=== PATIENT | male | born 1955 | race Caucasian/White ===

== ENCOUNTER 2022-12-24 02:59 | Inpatient (IN) | payer BC, OTHER ==
[~2022-12-24] VITALS: Ht 170.2 cm; Wt 97.5 kg
[2022-12-24 03:01] VITALS: BP_SYST 130
[2022-12-24] MEDS ORDERED: iohexoL 350 mgI/mL, 100 ML INFUS..BTL IV ONE (03:13)
[2022-12-24] MEDS ORDERED: TENECTEPLASE 50 MG VIAL IV ONE (03:15)
[2022-12-24 03:23] LABS: BASOPHILS # (AUTO) 0.1 K/uL (0.0-0.2); EOSINOPHILS % (AUTO) 0.2 % (0.0-4.0); HEMATOCRIT 36.1 % (36-54); LYMPHOCYTES # (AUTO) 1.6 K/uL (1.0-5.5); LYMPHOCYTES % (AUTO) 14.8 % (20.5-51.5); MEAN CORPUSCULAR HEMOGLOBIN 34 pg (27-31); MEAN CORPUSCULAR HGB CONC 36 % (32-36); MEAN CORPUSCULAR VOLUME 95 fL (79.0-98.0); MONOCYTES # (AUTO) 0.5 K/uL (0.0-1.0); MONOCYTES % (AUTO) 5.1 % (1.7-9.3); NEUTROPHILS # (AUTO) 8.4 K/uL (1.8-7.7); NEUTROPHILS % (AUTO) 78.9 % (40.0-70.0); PLATELET COUNT (AUTO) 231 K/uL (130-430); RED CELL DISTRIBUTION WIDTH 12.5 % (9.0-15.0); WHITE BLOOD COUNT (AUTO) 10.7 K/uL (4.8-10.8)
[2022-12-24 03:33] LABS: ANION GAP 10 (5-15); CALCIUM 9.1 mg/dL (8.4-11.0); CHLORIDE 102 mmol/L (98-107); CREATININE 1.14 mg/dL (0.55-1.30); GLUCOSE 207 mg/dL (70-99); UREA NITROGEN, BLOOD 19 mg/dL (8-21)
[2022-12-24 03:38] LABS: GFR AFRICAN AMERICAN 83 mL/min (>90)
[2022-12-24 03:39] LABS: ALANINE AMINOTRANSFERASE 26 U/L (12-78); ALBUMIN 3.5 g/dL (3.4-4.8); ASPARTATE AMINOTRANSFERASE 12 U/L (10-37); TOTAL BILIRUBIN 0.4 mg/dL (0.0-1.0)
[2022-12-24] MEDS ORDERED: ASPIRIN 325 MG TABLET PO ONE (04:00)
[2022-12-24] MEDS: ATORVASTATIN 20 MG TABLET PO ONE ×2 (04:11→04:14)
[2022-12-24] MEDS ORDERED: ATORVASTATIN 20 MG TABLET ONE (04:12)
[2022-12-24] MEDS ORDERED: INSULIN REGULAR, HUMAN 100 UNITS/ML, 3 ML VIAL (humuLIN R) SUBCUT PRN (04:30)
[2022-12-24 06:38] LABS: BILIRUBIN,URINE NEGATIVE (NEGATIVE); BLOOD, URINE NEGATIVE (NEGATIVE); CLARITY/URINE CLEAR (CLEAR); COLOR,URINE YELLOW (YELLOW); GLUCOSE,URINE NEGATIVE (NEGATIVE); KETONES,URINE NEGATIVE (NEGATIVE); LEUKOCYTE ESTERASE ,URINE NEGATIVE (NEGATIVE); NITRITE, URINE NEGATIVE (NEGATIVE); PH,URINE 6.5 (5.0-8.0); PROTEIN URINE NEGATIVE (NEGATIVE); UROBILINOGEN,URINE 0.2 (0.2-1.0)
[2022-12-24] MEDS ORDERED: METF-379 PO (07:19)
[2022-12-24] MEDS: metFORMIN HCL 500 MG TABLET PO SCH (09:00)
[2022-12-24 09:49] VITALS: BP_SYST 175
[2022-12-24] MEDS ORDERED: HYDROcodone/ACETAMIN 5-325 MG TAB (NORCO/ VICODIN) PO PRN (10:00)
[2022-12-24] MEDS ORDERED: NALOXONE HCL 0.4 MG/ML AMP (NARCAN) IVP PRN ×2 (10:00)
[2022-12-24] MEDS ORDERED: HYDROcodone/ACETAMIN 10-325 MG TAB PO PRN (10:00)
[2022-12-24] MEDS ORDERED: ONDANSETRON HCL 4 MG/2 ML VIAL IVP PRN (10:00)
[2022-12-24] MEDS ORDERED: ACETAMINOPHEN 325 MG TABLET PO PRN (10:00)
[2022-12-24] MEDS ORDERED: LORazepam 2 MG/ML VIAL IVP PRN (10:00)
[2022-12-24] MEDS ORDERED: cloNIDine HCL 0.2 MG TABLET PO PRN (10:15)
[2022-12-24] MEDS ORDERED: HYDROCHLOROTHIAZIDE 25 MG TABLET (HCTZ) PO ONE (11:00)
[2022-12-24 12:55] VITALS: BP_SYST 152
[2022-12-24] MEDS ORDERED: NORMAL SALINE 5 ML DISP.SYRIN IVF SCH (14:00)
[2022-12-24] MEDS: NORMAL SALINE 5 ML DISP.SYRIN IVF SCH ×2 (14:11→23:17)
[2022-12-24] MEDS ORDERED: FAMOTIDINE 20 MG TABLET PO ONE (14:30)
[2022-12-24 15:35] VITALS: BP_SYST 143
[2022-12-24 16:00] VITALS: BP_SYST 143
[2022-12-24 20:00] VITALS: BP_SYST 137
[2022-12-24] MEDS: LISINOPRIL 10 MG TABLET (PRINIVIL) PO SCH (21:25)
[2022-12-24] MEDS: FAMOTIDINE 20 MG TABLET PO SCH (21:25)
[2022-12-25 00:40] VITALS: BP_SYST 130
[2022-12-25] MEDS: NORMAL SALINE 5 ML DISP.SYRIN IVF SCH ×3 (06:18→22:12)
[2022-12-25 06:26] LABS: BASOPHILS % (AUTO) 0.5 % (0.0-2.0); EOSINOPHILS % (AUTO) 0.4 % (0.0-4.0); HEMATOCRIT 38.3 % (36-54); HEMOGLOBIN 13.5 g/dL (14.0-18.0); LYMPHOCYTES # (AUTO) 1.7 K/uL (1.0-5.5); LYMPHOCYTES % (AUTO) 16.8 % (20.5-51.5); MEAN CORPUSCULAR HEMOGLOBIN 34 pg (27-31); MEAN CORPUSCULAR HGB CONC 35 % (32-36); MEAN CORPUSCULAR VOLUME 98 fL (79.0-98.0); MONOCYTES # (AUTO) 0.6 K/uL (0.0-1.0); MONOCYTES % (AUTO) 5.8 % (1.7-9.3); NEUTROPHILS # (AUTO) 7.5 K/uL (1.8-7.7); NEUTROPHILS % (AUTO) 76.5 % (40.0-70.0); PLATELET COUNT (AUTO) 247 K/uL (130-430); RED BLOOD CELL COUNT(AUTO) 3.92 MIL/uL (4.2-6.2); RED CELL DISTRIBUTION WIDTH 12.3 % (9.0-15.0); WHITE BLOOD COUNT (AUTO) 9.8 K/uL (4.8-10.8)
[2022-12-25 07:00] LABS: CALCIUM 9.5 mg/dL (8.4-11.0); CREATININE 0.96 mg/dL (0.55-1.30); PHOSPHORUS 4.2 mg/dL (2.7-4.5)
[2022-12-25 07:32] VITALS: BP_SYST 148
[2022-12-25 08:00] VITALS: BP_SYST 148
[2022-12-25] MEDS: metFORMIN HCL 500 MG TABLET PO SCH (08:10)
[2022-12-25] MEDS: FAMOTIDINE 20 MG TABLET PO SCH ×2 (08:12→22:10)
[2022-12-25] MEDS: ATORVASTATIN 20 MG TABLET PO SCH (08:12)
[2022-12-25] MEDS: ASPIRIN 81 MG TAB.CHEW PO SCH (08:12)
[2022-12-25 11:30] VITALS: BP_SYST 134
[2022-12-25 15:29] VITALS: BP_SYST 146
[2022-12-25 20:30] VITALS: BP_SYST 139
[2022-12-25] MEDS: LISINOPRIL 10 MG TABLET (PRINIVIL) PO SCH (22:11)
[2022-12-26 00:12] VITALS: BP_SYST 136
[2022-12-26 06:20] LABS: BASOPHILS # (AUTO) 0.1 K/uL (0.0-0.2); BASOPHILS % (AUTO) 0.8 % (0.0-2.0); EOSINOPHILS % (AUTO) 0.4 % (0.0-4.0); HEMATOCRIT 38.7 % (36-54); HEMOGLOBIN 13.9 g/dL (14.0-18.0); LYMPHOCYTES # (AUTO) 1.7 K/uL (1.0-5.5); LYMPHOCYTES % (AUTO) 19.5 % (20.5-51.5); MEAN CORPUSCULAR HEMOGLOBIN 34 pg (27-31); MEAN CORPUSCULAR HGB CONC 36 % (32-36); MEAN CORPUSCULAR VOLUME 96 fL (79.0-98.0); MONOCYTES # (AUTO) 0.6 K/uL (0.0-1.0); MONOCYTES % (AUTO) 7.4 % (1.7-9.3); NEUTROPHILS # (AUTO) 6.3 K/uL (1.8-7.7); NEUTROPHILS % (AUTO) 71.9 % (40.0-70.0); PLATELET COUNT (AUTO) 253 K/uL (130-430); RED BLOOD CELL COUNT(AUTO) 4.05 MIL/uL (4.2-6.2); RED CELL DISTRIBUTION WIDTH 12.3 % (9.0-15.0); WHITE BLOOD COUNT (AUTO) 8.7 K/uL (4.8-10.8)
[2022-12-26 07:05] LABS: ALBUMIN 3.6 g/dL (3.4-4.8); CALCIUM 9.5 mg/dL (8.4-11.0); CREATININE 1.13 mg/dL (0.55-1.30); TOTAL BILIRUBIN 0.7 mg/dL (0.0-1.0)
[2022-12-26] MEDS: NORMAL SALINE 5 ML DISP.SYRIN IVF SCH (07:13)
[2022-12-26 08:25] VITALS: BP_SYST 108
[2022-12-26] MEDS ORDERED: ATORVASTATIN 20 MG TABLET ONE (09:29)
[2022-12-26] MEDS: ATORVASTATIN 20 MG TABLET PO SCH (09:31)
[2022-12-26] MEDS: FAMOTIDINE 20 MG TABLET PO SCH (09:31)
[2022-12-26] MEDS: ASPIRIN 81 MG TAB.CHEW PO SCH (09:31)
[2022-12-26] MEDS: metFORMIN HCL 500 MG TABLET PO SCH (09:32)
[2022-12-26] MEDS ORDERED: LIP20 PO (13:48)
[2022-12-26] MEDS ORDERED: ASA81 PO (13:48)
[2022-12-26] MEDS ORDERED: FAMO20TA8 PO (13:48)
[2022-12-26] MEDS ORDERED: LISI10TA29 PO (13:48)
[2022-12-26 14:07] VITALS: BP_SYST 132
[2022-12-26 14:16] VITALS: BP_SYST 130
== END 2022-12-26 15:15 | DRG 65 ==
LOC: SED 02:59 → STU 04:34
PROVIDERS: ADMIT Preventive Medicine Preventive Medicine/Occupational Environmental Medicine; ATTEND Preventive Medicine Preventive Medicine/Occupational Environmental Medicine
DX: I63.9 Cerebral infarction, unspecified (principal); G81.94 Hemiplegia, unspecified affecting left nondominant side; R47.81 Slurred speech; R29.810 Facial weakness; E78.5 Hyperlipidemia, unspecified; R29.707 NIHSS score 7; I10 Essential (primary) hypertension; E11.65 Type 2 diabetes mellitus with hyperglycemia; Z85.528 Personal history of other malignant neoplasm of kidney; Z87.891 Personal history of nicotine dependence; Z90.5 Acquired absence of kidney
CPT/HCPCS: 36415; 70450-TC; 70496; 70498; 70551; 76376; 80048; 80053; 80061; 81003; 82962; 83037; 83735; 83880; 84100; 84484; 85025; 87081; 92610-GN; 93306; 97110-GP; 97112-GP; 97116-GP; 97163-GP; 97530-GP; 99285; G0378; J3101; Q9967